=== PATIENT | male | born 1995 | race Caucasian/White ===

== ENCOUNTER 2017-04-05 04:21 | Emergency (ER) | payer OTHER ==
[~2017-04-05] VITALS: Ht 180.3 cm; Wt 63.5 kg
[2017-04-05] MEDS ORDERED: IV NORMAL SALINE 1000 ML BAG IV ONE ×2 (05:00→06:00)
[2017-04-05] MEDS ORDERED: ONDANSETRON 4 MG/2 ML VIAL IV ONE (05:00)
[2017-04-05] MEDS ORDERED: ONDANSETRON 4 MG/2 ML VIAL ONE (05:25)
[2017-04-05 06:09] LABS: *AMPHETAMINE, URINE NEGATIVE (NEGATIVE); *BARBITURATE, URINE NEGATIVE (NEGATIVE); *CANNABINOID, URINE POSITIVE (NEGATIVE); *COCCAINE, URINE NEGATIVE (NEGATIVE); *OPIATE, URINE NEGATIVE (NEGATIVE); *PHENCYCLIDINE SCREEN,URINE NEGATIVE (NEGATIVE)
[2017-04-05 06:27] VITALS: BP 99/58
--- NOTE | 2017-04-05 06:42 | NUR ---
pt denies paranoia and nausea - ambulates unbeventfully
== END 2017-04-05 06:44 | disposition home or self-care (01) ==
LOC: ER 04:33
DX: F12.10 Cannabis abuse, uncomplicated (principal); E86.0 Dehydration
CPT/HCPCS: 80307; 96361; 96374; 99284; A4663; J2405; J7030 ×2